=== PATIENT | female | born 1990 | race Caucasian/White ===

== ENCOUNTER 2017-02-22 08:55 | Emergency (ER) | payer OTHER ==
[2017-02-22 09:12] VITALS: BP 117/80
--- NOTE | 2017-02-22 10:09 | UC ---
Lower Extremity/Ankle HPI - HPI Summary HPI Summary: DROPPED A HEAVY JAR FULL OF WATER ON LEFT GREAT TOE LAST NIGHT. NAIL IS BLACK. VERY PAINFUL. - History of Current Complaint Chief Complaint: UCLowerExtremity Stated Complaint: TOE INJURY Time Seen by Provider: 02/22/17 09:54 Hx Obtained From: Patient Hx Last Menstrual Period: 01/31/17 Onset/Duration: Sudden Onset, Lasting Hours, Still Present Severity Initially: Moderate Severity Currently: Moderate Pain Intensity: 7 Pain Scale Used: 0-10 Numeric Aggravating Factor(s): Standing, Ambulation Alleviating Factor(s): Rest Able to Bear Weight: Yes - Allergies/Home Medications Allergies/Adverse Reactions: Allergies Allergy/AdvReac Type Severity Reaction Status Date / Time C[facility] [[facility] Allergy Rash Verified 02/22/17 09:08 Penicillins Allergy Rash Verified 02/22/17 09:07 PMH/Surg Hx/FS Hx/Imm Hx Previously Healthy: Yes - Surgical History Surgical History: None - Family History Known Family History: Positive: Hypertension - Social History Alcohol Use: None Substance Use Type: None Smoking Status (MU): Never Smoked Tobacco Review of Systems Constitutional: Negative Skin: Other - SUBUNGUAL HEMATOMA Respiratory: Negative Cardiovascular: Negative Gastrointestinal: Negative Musculoskeletal: Arthralgia, Decreased ROM All Other Systems Reviewed And Are Negative: Yes Physical Exam Triage Information Reviewed: Yes Appearance: Well-Appearing, No Pain Distress, Well-Nourished Vital Signs: Initial Vital Signs Temp 98.4 F 02/22/17 09:08 Pulse 89 02/22/17 09:08 Resp 18 02/22/17 09:08 BP 117/80 02/22/17 09:08 Pulse Ox 97 02/22/17 09:08 Vital Signs Reviewed: Yes Eyes: Positive: Conjunctiva Clear ENT: Positive: Hearing grossly normal Neck: Positive: Supple Respiratory: Positive: No respiratory distress, No accessory muscle use Cardiovascular: Positive: Pulses Normal Abdomen Description: Positive: Soft Musculoskeletal: Positive: No Edema, ROM Limited @ - LEFT GREAT TOE, Other: - TTP DISTAL LEFT GREAT TOE Neurological: Positive: Alert Psychological: Positive: Age Appropriate Behavior Skin: Positive: Other - SUBUNGUAL HEMATOMA LEFT GREAT TOE Procedures - Nail Trepanation Nail Trepanation Location: LELFT GREAT TOENAIL Method of Drainage: nail cauterized Sterile Dressing Applied: Yes Finger Splint: No Diagnostics - Radiology LEFT GREAT TOE XRAY Xray Interpretation: No Acute Changes Radiology Interpretation Completed By: Radiologist Lower Extremity Course/Dx - Differential Dx/Diagnosis Provider Diagnoses: LEFT GREAT TOE CONTUSION/SUBUNGUAL HEMATOMA Discharge - Discharge Plan Condition: Stable Disposition: HOME Patient Education Materials: Subungual Hematoma (ED) Referrals: No Primary Care Phys,NOPCP [Primary Care Provider] - Additional Instructions: YOUR NAIL MAY DRAIN FOR THE NEXT DAY OR 2. KEEP CLEAN AND DRY. COVER WITH STERILE GAUZE. NO NEED TO SOAK IT. XRAYS NEGATIVE FOR FRACTURE SEEK FOLLOW-UP HERE IF YOU DEVELOP SPREADING REDNESS OF THE SKIN, PURULENT DRAINAGE, FEVER, INCREASED PAIN OR ANY OTHER CONCERNING SYMPTOMS.
--- NOTE | 2017-02-22 10:32 | RAD ---
HISTORY: Trauma, pain, first toe of left foot COMPARISONS: None VIEWS: 3, Frontal, lateral, and oblique views of the first digit of the left foot FINDINGS: BONE DENSITY: Normal. BONES: There is no displaced fracture. JOINTS: There is no arthropathy. ALIGNMENT: There is no dislocation. SOFT TISSUES: Unremarkable. OTHER FINDINGS: None. IMPRESSION: NO ACUTE OSSEOUS INJURY. IF SYMPTOMS PERSIST, RECOMMEND REPEAT IMAGING.
== END 2017-02-22 11:24 | disposition home or self-care (01) ==
LOC: UCEAST 08:55
DX: S90.112A Contusion of left great toe without damage to nail, initial encounter (principal); W20.8XXA Other cause of strike by thrown, projected or falling object, initial encounter; Y93.9 Activity, unspecified; Y92.9 Unspecified place or not applicable; Z88.1 Allergy status to other antibiotic agents; Z88.0 Allergy status to penicillin
CPT/HCPCS: 99202; G0463